=== PATIENT | female | born 1955 | race Caucasian/White ===

== ENCOUNTER 2017-04-08 10:53 | Emergency (ER) | payer OTHER ==
[~2017-04-08] VITALS: Ht 152.4 cm; Wt 54.4 kg
[~2017-04-08 10:53] MED LIST: BUSP10TA PO; CALC-274 PO; CARI350T PO; CITA40TA12 PO; FLUO40CA9 PO; HYDR200T5 PO; KRIL500C PO; LISI-334 PO; OXYC15TA60 PO; RIZA10TA PO; VITA1TAB19 PO
--- NOTE | 2017-04-08 11:17 | PHYS DOC ---
Past Medical History Past Medical History: Anxiety, Asthma, Hypertension, Migraines Past Surgical History: Other Additional Past Surgical Histo: (R) FOOT REPAIR Alcohol Use: None Drug Use: None Adult General Chief Complaint Chief Complaint: ABNORMAL LABS [facility] HPI Patient is a 61 year old female who presents with lab values. She was seen 2 days ago and had labs drawn at primary care office which showed a potassium of 6.2. She was sent in for this. She denies any fevers chills nausea vomiting. She has had some loose stools recently but this being controlled with Imodium. She denies any other complaints. Review of Systems Review of Systems Constitutional: Denies fever or chills Eyes: Denies change in visual acuity, redness, or eye pain HENT: Denies nasal congestion or sore throat Respiratory: Denies cough or shortness of breath Cardiovascular: No additional information not addressed in HPI GI: Denies abdominal pain, nausea, vomiting, bloody stools or diarrhea : Denies dysuria or hematuria Musculoskeletal: Denies back pain or joint pain Integument: Denies rash or skin lesions Neurologic: Denies headache, focal weakness or sensory changes Endocrine: Denies polyuria or polydipsia Allergies Allergies Allergies Coded Allergies Type Severity Reaction Last Updated Verified promethazine Allergy Severe Unknown 09/03/13 Yes Cephalexin Monohydrate Allergy Intermediate Unknown 09/03/13 Yes Penicillins Allergy Intermediate Unknown 09/03/13 Yes Physical Exam Physical Exam Constitutional: Well developed, well nourished, no acute distress, non-toxic appearance. HENT: Normocephalic, atraumatic, bilateral external ears normal, oropharynx moist, no oral exudates, nose normal. Eyes: PERRLA, EOMI, conjunctiva normal, no discharge. Neck: Normal range of motion, no tenderness, supple, no stridor. Cardiovascular:Heart rate regular rhythm, no murmur Lungs & Thorax: Bilateral breath sounds clear to auscultation Abdomen: Bowel sounds normal, soft, no tenderness, no masses, no pulsatile masses. Skin: Warm, dry, no erythema, no rash. Back: No tenderness, no CVA tenderness. Extremities: No tenderness, no cyanosis, no clubbing, ROM intact, no edema. Neurologic: Alert and oriented X 3, normal motor function, normal sensory function, no focal deficits noted. Psychologic: Affect normal, judgement normal, mood normal. Current Patient Data Vital Signs Vital Signs Date Time Temp Pulse Resp B/P (MAP) Pulse Ox O2 Delivery O2 Flow Rate FiO2 04/08/17 11:01 98.2 67 17 139/91 (107) 98 Room Air 98.2 Lab Values Laboratory Tests Test 04/08/17 11:20 04/08/17 11:45 04/08/17 13:00 White Blood Count 6.5 x10^3/uL (4.0-11.0) Red Blood Count 3.82 x10^6/uL (3.50-5.40) Hemoglobin 10.7 g/dL (12.0-15.5) L Hematocrit 31.8 % (36.0-47.0) L Mean Corpuscular Volume 83 fL (79-100) Mean Corpuscular Hemoglobin 28 pg (25-35) Mean Corpuscular Hemoglobin Concent 34 g/dL (31-37) Red Cell Distribution Width 13.6 % (11.5-14.5) Platelet Count 232 x10^3/uL (140-400) Neutrophils (%) (Auto) 58 % (31-73) Lymphocytes (%) (Auto) 31 % (24-48) Monocytes (%) (Auto) 9 % (0-9) Eosinophils (%) (Auto) 2 % (0-3) Basophils (%) (Auto) 1 % (0-3) Neutrophils # (Auto) 3.8 x10^3uL (1.8-7.7) Lymphocytes # (Auto) 2.0 x10^3/uL (1.0-4.8) Monocytes # (Auto) 0.6 x10^3/uL (0.0-1.1) Eosinophils # (Auto) 0.1 x10^3/uL (0.0-0.7) Basophils # (Auto) 0.1 x10^3/uL (0.0-0.2) Sodium Level 130 mmol/L (136-145) L 132 mmol/L (136-145) L Potassium Level 3.7 mmol/L (3.5-5.1) 4.5 mmol/L (3.5-5.1) # Chloride Level 96 mmol/L (98-107) L 96 mmol/L (98-107) L Carbon Dioxide Level 25 mmol/L (21-32) 26 mmol/L (21-32) Anion Gap 9 (6-14) 10 (6-14) Blood Urea Nitrogen 23 mg/dL (7-20) H 22 mg/dL (7-20) H Creatinine 1.0 mg/dL (0.6-1.0) 1.0 mg/dL (0.6-1.0) Estimated GFR (Cockcroft-Gault) 56.2 56.2 Glucose Level 97 mg/dL (70-99) 99 mg/dL (70-99) Calcium Level 8.2 mg/dL (8.5-10.1) L 8.8 mg/dL (8.5-10.1) Magnesium Level 1.8 mg/dL (1.8-2.4) Total Bilirubin 0.1 mg/dL (0.2-1.0) L Direct Bilirubin < 0.1 mg/dL (0.0-0.2) Aspartate Amino Transferase (AST) 28 U/L (15-37) Alanine Aminotransferase (ALT) 37 U/L (14-59) Alkaline Phosphatase 95 U/L (46-116) Creatine Kinase 127 U/L (26-192) Creatine Kinase MB (Mass) 1.7 ng/mL (0.0-3.6) Creatine Kinase MB Relative Index 1.3 % (0-4) Troponin I Quantitative < 0.017 ng/mL (0.000-0.055) TC-Zyj-G-Type Natriuretic Peptide 17 pg/mL (0-124) Total Protein 6.7 g/dL (6.4-8.2) Albumin 3.6 g/dL (3.4-5.0) Urine Collection Type Unknown Urine Color Yellow Urine Clarity Clear Urine pH 5.5 Urine Specific [place] 1.010 Urine Protein Negative mg/dL (NEG-TRACE) Urine Glucose (UA) Negative mg/dL (NEG) Urine Ketones (Stick) Negative mg/dL (NEG) Urine Blood Negative (NEG) Urine Nitrite Negative (NEG) Urine Bilirubin Negative (NEG) Urine Urobilinogen Dipstick 0.2 mg/dL (0.2 mg/dL) Urine Leukocyte Esterase Trace (NEG) Urine RBC 0 /HPF (0-2) Urine WBC 0 /HPF (0-4) Urine Squamous Epithelial Cells Few /LPF Urine Bacteria 0 /HPF (0-FEW) Laboratory Tests 04/08/17 11:20 Laboratory Tests 04/08/17 11:20 04/08/17 13:00 EKG EKG EKG shows sinus rhythm 3-[address] elevations or T-wave inversions, normal axis, Q RS 76 monocytes, QTC 451 ms, as interpreted by me. Radiology/Procedures Radiology/Procedures [] Impressions: Chronic renal insufficiency Course & Med Decision Making Course & Med Decision Making Pertinent Labs and Imaging studies reviewed. (See chart for details) Her potassium levels 3.7 with a sodium of 130. This was rechecked and potassium was 4.5. Spoke with Dr. Sosa regarding the normal values and she is okay with the patient being discharged home. Return precautions given. Patient is agreeable to the plan and being discharged in stable condition at this time. Dragon Disclaimer Dragon Disclaimer This electronic medical record was generated, in whole or in part, using a voice recognition dictation system. Departure Departure Impression: Primary Impression: Abnormal labor Disposition: 01 HOME, SELF-CARE Condition: STABLE Referrals: ALBAN RODRIGUES PA-C (PCP) Patient Instructions: Chronic Renal Insufficiency Additional Instructions: You were seen today for an abnormal potassium level on the outpatient lab. We repeated the labs twice and your potassium is normal. Your being discharged home. Please follow-up with your primary care physician and your systems architecture analyst. Return ER if he started feeling lightheaded dizzy or have other concerns. HEVER PRAJAPATI MD Apr 08, 2017 11:17
[2017-04-08 11:39] LABS: BASO # 0.1 x10^3/uL (0.0-0.2); BASO % 1 % (0-3); EOS % 2 % (0-3); HEMATOCRIT 31.8 % (36.0-47.0); HEMOGLOBIN 10.7 g/dL (12.0-15.5); LYMPH % 31 % (24-48); MEAN CORPUSCULAR HEMOGLOBIN 28 pg (25-35); MEAN CORPUSCULAR HGB CONC 34 g/dL (31-37); MEAN CORPUSCULAR VOLUME 83 fL (79-100); MONO % 9 % (0-9); NEUT % 58 % (31-73); PLATELET COUNT 232 x10^3/uL (140-400); RED BLOOD COUNT 3.82 x10^6/uL (3.50-5.40); RED CELL DISTRIBUTION WIDTH 13.6 % (11.5-14.5); WHITE BLOOD COUNT 6.5 x10^3/uL (4.0-11.0)
[2017-04-08 11:54] LABS: BILIRUBIN,URINE NEGATIVE (NEG); GLUCOSE,URINE NEGATIVE (NEG); NITRITE,URINE NEGATIVE (NEG); PH,URINE 5.5; PROTEIN,URINE NEGATIVE (NEG-TRACE); UROBILINOGEN,URINE 0.2 mg/dL (0.2 mg/dL)
[2017-04-08 11:54] LABS: ANION GAP 9 (6-14); BLOOD UREA NITROGEN 23 mg/dL (7-20); CALCIUM 8.2 mg/dL (8.5-10.1); CARBON DIOXIDE 25 mmol/L (21-32); CHLORIDE 96 mmol/L (98-107); GFR 56.2; GLUCOSE 97 mg/dL (70-99); POTASSIUM 3.7 mmol/L (3.5-5.1); SODIUM 130 mmol/L (136-145)
[2017-04-08 11:57] LABS: ALBUMIN 3.6 g/dL (3.4-5.0); ALK PHOS 95 U/L (46-116); ALT (SGPT) 37 U/L (14-59); AST (SGOT) 28 U/L (15-37); DIRECT BILIRUBIN < 0.1 mg/dL (0.0-0.2); MAGNESIUM 1.8 mg/dL (1.8-2.4); TOTAL BILIRUBIN 0.1 mg/dL (0.2-1.0); TOTAL PROTEIN 6.7 g/dL (6.4-8.2)
[2017-04-08 11:58] LABS: CKMB MASS 1.7 ng/mL (0.0-3.6)
[2017-04-08 12:05] LABS: BACTERIA,URINE 0 /HPF (0-FEW); RBC,URINE 0 /HPF (0-2); SQUAMOUS EPITHELIAL CELL,UR FEW /LPF; WBC,URINE 0 /HPF (0-4)
[2017-04-08 12:30] VITALS: BP 133/81
[2017-04-08 13:18] LABS: CALCIUM 8.8 mg/dL (8.5-10.1); GFR 56.2; POTASSIUM 4.5 mmol/L (3.5-5.1)
--- NOTE | 2017-04-08 13:20 | EKG ---
[facility] [address] [place] [address] Test Date: 2017-04-08 Test Time: 11:31:51 Pat Name: KETTY CUEVAS Department: Room: Gender: F Mechanic/Welder: : 1955 Requested By: HEVER PRAJAPATI Order Number: [id number] Reading MD: Cecilia Gold Measurements Intervals [place] Rate: 68 P: 42 MS: 154 QRS: 15 QRSD: 76 T: 36 QT: 424 QTc: 451 Interpretive Statements SINUS RHYTHM NORMAL EKG Electronically Signed On 04-10-2017 19:04:57 CDT by Cecilia Gold
== END 2017-04-08 13:45 | disposition home or self-care (01) ==
LOC: ER 10:53
DX: I12.9 Hypertensive chronic kidney disease with stage 1 through stage 4 chronic kidney disease, or unspecified chronic kidney disease (principal); N18.9 Chronic kidney disease, unspecified; R79.9 Abnormal finding of blood chemistry, unspecified; J45.909 Unspecified asthma, uncomplicated; G43.909 Migraine, unspecified, not intractable, without status migrainosus; Z88.0 Allergy status to penicillin; Z88.1 Allergy status to other antibiotic agents; Z88.8 Allergy status to other drugs, medicaments and biological substances
CPT/HCPCS: 36415; 80048; 80076; 81001; 82553; 83735; 83880; 84484; 85025; 87086; 93005; 99285-25

== ENCOUNTER → 2017-04-25 | Outpatient (CLI) | payer OTHER ==
[2017-04-08 12:30] VITALS: BP 133/81
--- NOTE | 2017-04-25 11:34 | KCIC ---
DATE: 04/25/2017 EXAM: MAMMO MORAIMA SCREENING BILATERAL HISTORY: Screening COMPARISON: 02/27/2016 This study was interpreted with the benefit of Computerized Aided Detection (CAD). FINDINGS: Breast Density: SCATTERED The breast parenchyma shows scattered fibroglandular densities. Breast parenchyma level B. There has been little change in the appearance of the breasts compared to the previous exam IMPRESSION: Benign findings BI-RADS CATEGORY: 2 BENIGN FINDING(S) RECOMMENDED FOLLOW-UP: 12M 12 MONTH FOLLOW-UP PQRS compliance statement: Patient information was entered into a reminder system with a target due date 04/25/2018 for the next mammogram. Mammography is a sensitive method for finding small breast cancers, but it does not detect them all and is not a substitute for careful clinical examination. A negative mammogram does not negate a clinically suspicious finding and should not result in delay in biopsying a clinically suspicious abnormality. "Our facility is accredited by the [employer] Mammography Program."
== END | disposition home or self-care (01) ==
LOC: KCIC MAMMO 08:09
PROVIDERS: ATTEND Internal Medicine
DX: Z12.31 Encounter for screening mammogram for malignant neoplasm of breast (principal)
CPT/HCPCS: 77063; G0202; 77067

== ENCOUNTER → 2018-04-06 | Outpatient (CLI) | payer OTHER ==
--- NOTE | 2018-04-06 10:34 | KCIC ---
MR of the left shoulder Indication: Left shoulder weakness, fell 2 years ago, decreased range of motion. Technique: Standard multiplanar sequences are obtained. Findings: Artifact: No significant image degradation. Acromioclavicular joint: Mildly degenerative. Minimal fluid about the joint. Rotator cuff: * Supraspinatus-infraspinatus tendon: Thinning of the supraspinatus tendon, as little as 1 mm thick at the footplate attachment. Presumably due to tearing of the undersurface and/or the bursal surface. Measures at least 15 mm AP diameter No complete through and through rupture or retraction. * Subscapularis tendon: Tendinosis with partial tearing * Muscle bulk: Moderate muscle atrophy * Subacromial subdeltoid bursa: Trace effusion. Fluid: Small glenohumeral effusion. Mild heterogeneity within the axillary recess is likely synovitis. Glenohumeral cartilage: Severe cartilage loss with subchondral bone exposure and cystic change. There is volume loss and flattening of the glenoid. Labrum: Diffuse distortion and heterogeneity of the labrum. Tear of the posterosuperior labrum. Anteroinferior labrum also demonstrate evidence of a chronic degenerative tear. Biceps tendon: Tendinosis with partial tearing. Medial subluxation, perched and flattened over the lesser tuberosity. Bones: No lesion or acute fracture. Soft tissue: No acute findings. Impression: 1. Severe thinning of the supraspinatus tendon attachment compatible with partial tearing. Partial subscapularis tendon tear. 2. Biceps tendinosis with partial tearing medial subluxation. 3. Circumferential labral degeneration, with tearing of at least the posterosuperior and anteroinferior labrum. The Electronically signed by: Balwinder Russo MD (04/06/2018 10:30 AM) [id number]
== END | disposition home or self-care (01) ==
LOC: KCIC MRI 07:41
PROVIDERS: ATTEND Physician Assistant Surgical
DX: S43.082A Other subluxation of left shoulder joint, initial encounter (principal); S46.812A Strain of other muscles, fascia and tendons at shoulder and upper arm level, left arm, initial encounter; M62.512 Muscle wasting and atrophy, not elsewhere classified, left shoulder; X58.XXXA Exposure to other specified factors, initial encounter; Y93.89 Activity, other specified; Y92.89 Other specified places as the place of occurrence of the external cause; Y99.8 Other external cause status
CPT/HCPCS: 73221

== ENCOUNTER → 2018-04-27 | Outpatient (CLI) | payer OTHER ==
[~2018-04-27] MED LIST changes: +ACET500T33 PO; +CRESTOR20 MG PO; +DIPH50CA PO; +ESCITALOPRAM OX20 MG PO; +LORA1TAB PO; +LOSA100T7 PO; +OMEP20TA8 PO; +ONDA4TAB12 PO; +UBID400C3 PO
--- NOTE | 2018-04-27 14:23 | KCIC ---
Bilateral digital screening mammograms: Reason for examination: Routine screening. Comparison is made to previous studies dated 04/25/2017 and 02/27/2016. Interpretation was made with the benefit of CAD. The skin and nipples show no abnormalities. No abnormal axillary lymph nodes are seen. The breast parenchyma shows scattered fibroglandular density. (Breast density: Category B.) There continues to be some asymmetric parenchyma in the right breast in the upper outer quadrant anteriorly which is unchanged. There are no new dominant masses, suspicious calcifications or architectural distortions. Some benign calcifications are present. Impression: No evidence of malignancy. Recommend routine screening. BI-RADS category 2: Benign "Our facility is accredited by the [employer] Mammography Program." This patient's information has been entered into a reminder system for the patient to be notified with the results of her examination and a target date for the next mammogram. Electronically signed by: Tanisha Cortes MD (04/27/2018 2:20 PM) [id number]
== END | disposition home or self-care (01) ==
LOC: KCIC MAMMO 12:29
PROVIDERS: ATTEND Physician Assistant Surgical
DX: Z12.31 Encounter for screening mammogram for malignant neoplasm of breast (principal)
CPT/HCPCS: 77067

== ENCOUNTER → 2018-05-02 | Outpatient (CLI) | payer OTHER ==
[2018-05-02 15:31] LABS: BASO % 1 % (0-3); EOS # 0.1 x10^3/uL (0.0-0.7); EOS % 1 % (0-3); HEMATOCRIT 34.4 % (36.0-47.0); HEMOGLOBIN 11.3 g/dL (12.0-15.5); LYMPH # 2.3 x10^3/uL (1.0-4.8); LYMPH % 40 % (24-48); MEAN CORPUSCULAR HEMOGLOBIN 27 pg (25-35); MEAN CORPUSCULAR HGB CONC 33 g/dL (31-37); MEAN CORPUSCULAR VOLUME 82 fL (79-100); MONO # 0.4 x10^3/uL (0.0-1.1); MONO % 8 % (0-9); NEUT # 2.9 x10^3uL (1.8-7.7); NEUT % 50 % (31-73); PLATELET COUNT 237 x10^3/uL (140-400); RED BLOOD COUNT 4.19 x10^6/uL (3.50-5.40); RED CELL DISTRIBUTION WIDTH 17.5 % (11.5-14.5); WHITE BLOOD COUNT 5.9 x10^3/uL (4.0-11.0)
--- NOTE | 2018-05-02 15:33 | EKG ---
[facility] [address] [place] [address] Test Date: 2018-05-02 Test Time: 15:41:26 Pat Name: KETTY CUEVAS Department: Room: Gender: F Under Seal Operator: KOMAL : 1955 Requested By: RICHA DEVINE Order Number: [id number] Reading MD: Sandoval Ko MD Measurements Intervals [place] Rate: 74 P: 42 SD: 148 QRS: 19 QRSD: 74 T: 51 QT: 372 QTc: 413 Interpretive Statements SINUS RHYTHM Electronically Signed On 05-03-2018 17:50:48 JEWELRY SALESPERSON by Sandoval Ko MD
[2018-05-02 15:36] LABS: ALBUMIN 4.1 g/dL (3.4-5.0); CALCIUM 8.9 mg/dL (8.5-10.1); CREATININE 1.3 mg/dL (0.6-1.0); GFR 41.4; POTASSIUM 4.5 mmol/L (3.5-5.1)
[2018-05-02 15:44] LABS: PROTHROMBIN TIME PATIENT 12.4 SEC (11.7-14.0)
[2018-05-02 15:49] LABS: BILIRUBIN,URINE NEGATIVE (NEG); CLARITY,URINE CLEAR; COLOR,URINE YELLOW; NITRITE,URINE NEGATIVE (NEG); PROTEIN,URINE NEGATIVE (NEG-TRACE); UROBILINOGEN,URINE 0.2 mg/dL (0.2 mg/dL)
[2018-05-02 16:02] LABS: BACTERIA,URINE 0 /HPF (0-FEW); SQUAMOUS EPITHELIAL CELL,UR FEW /LPF
--- NOTE | 2018-05-02 16:07 | RAD ---
AP and Lateral Views of the Chest 05/02/2018 3:44 PM Indication: PREOP CXR FOR LEFT SHOLDER REPLACEMENT ON THE . OFF AND ON COUGH FOR PAST WEEK. HX OF HYPERTENTION, HX HYPERLIPIDEMA, HX ASTHMA, Comparison: None Findings: There is no focal consolidation or infiltrate identified. The cardiomediastinal silhouette is within normal limits. There is no evidence of pneumothorax or pleural effusion. Moderate hiatal hernia noted. No acute osseous abnormalities are identified. Impression: 1.No evidence of acute cardiopulmonary process. 2. Moderate hiatal hernia Electronically signed by: Phani Vargas MD (05/02/2018 4:04 PM) [id number]
== END | disposition home or self-care (01) ==
LOC: SURGPAT 14:42
PROVIDERS: ATTEND Orthopaedic Surgery Sports Medicine
DX: Z01.818 Encounter for other preprocedural examination (principal); M19.012 Primary osteoarthritis, left shoulder; K44.9 Diaphragmatic hernia without obstruction or gangrene
CPT/HCPCS: 36415; 71046; 80048; 81001; 82040; 83036; 85025; 85610; 85651; 85730; 87086; 87641; 93005

== ENCOUNTER → 2018-05-15 | Outpatient (CLI) | payer OTHER ==
[~2018-05-15] VITALS: Ht 177.8 cm; Wt 55.6 kg
[~2018-05-15] MED LIST changes: +BUPIVACAINE MPF 0.5% 30 ML VIAL. ONE; +GLYCOPYRROLATE 1 MG/5 ML VIAL. ONE; +HYDROcodone/APAP 7.5/325MG 1 TAB TABLET PO ONE; +HYDROmorphone 2 MG/ML VIAL IV PRN; +IV RINGERS,LACTATED 1000ML 1,000 ML IV SCH; +LIDOCAINE 1% PF 2 ML VIAL. ID PRN; +LIDOCAINE 2% PF 2ML VIAL. ONE; +LOSA100T14 PO; -LOSA100T7 PO; +MELOXICAM 7.5 MG TABLET PO ONE; +MIDAZOLAM HCL/PF 2 MG/2 ML VIAL. ONE; +MORPHINE SULFATE 2 MG/ML VIAL. IV PRN; +MORPHINE SULFATE 5 MG, KETOROLAC 30MG VIAL 30 MG, ROPIVacaine 0.5% PF 60 ML, EPINEPHrin... INT ART ONE; +NEOSTIGMINE METHYLSULFATE 5 MG/5 ML SYRINGE. ONE; -OXYC15TA60 PO; +OXYC15TA61 PO; +ROCURONIUM 50 MG/5 ML VIAL. ONE; +VANCOMYCIN 1GM IVPB FOR OMNI 250 ML IV ONE; +ePHEDrine PF IN SALINE 50 MG/5 ML DISP.SYRIN IV ONE; +fentaNYL PF VIAL 100 MCG/2 ML VIAL IV PRN; +fentaNYL PF VIAL 100 MCG/2 ML VIAL ONE
[2018-05-15 08:52] VITALS: BP 132/92
[2018-05-15 09:40] LABS: PROTHROMBIN TIME PATIENT 13.7 SEC (11.7-14.0)
== END | disposition home or self-care (01) ==
LOC: OPSVCIP 08:24 → OPSVCOP 08:24 → UNDOADMIN 08:24 → EDSTATUS 10:00
PROVIDERS: ATTEND Orthopaedic Surgery Sports Medicine
DX: M19.012 Primary osteoarthritis, left shoulder (principal); I12.9 Hypertensive chronic kidney disease with stage 1 through stage 4 chronic kidney disease, or unspecified chronic kidney disease; N18.2 Chronic kidney disease, stage 2 (mild); J45.909 Unspecified asthma, uncomplicated; G43.909 Migraine, unspecified, not intractable, without status migrainosus; M51.37 Other intervertebral disc degeneration, lumbosacral region; M47.892 Other spondylosis, cervical region; M47.896 Other spondylosis, lumbar region; M43.16 Spondylolisthesis, lumbar region; M48.02 Spinal stenosis, cervical region; F41.9 Anxiety disorder, unspecified; Z88.1 Allergy status to other antibiotic agents; Z88.0 Allergy status to penicillin; Z88.8 Allergy status to other drugs, medicaments and biological substances; Z79.899 Other long term (current) drug therapy
CPT/HCPCS: 36415; 85610; 85730; 86850; 86900; 86901; 96360; J0171; J1885; J2001; J2250; J2270; J2710; J2795; J3010; J3490; J7120

== ENCOUNTER → 2020-04-07 | Outpatient (CLI) | payer OTHER ==
[2019-01-05 08:06] VITALS: BP 142/74
[~2020-04-07] MED LIST changes: -BUPIVACAINE MPF 0.5% 30 ML VIAL. ONE; -GLYCOPYRROLATE 1 MG/5 ML VIAL. ONE; -HYDROcodone/APAP 7.5/325MG 1 TAB TABLET PO ONE; -HYDROmorphone 2 MG/ML VIAL IV PRN; -IV RINGERS,LACTATED 1000ML 1,000 ML IV SCH; -LIDOCAINE 1% PF 2 ML VIAL. ID PRN; -LIDOCAINE 2% PF 2ML VIAL. ONE; -MELOXICAM 7.5 MG TABLET PO ONE; -MIDAZOLAM HCL/PF 2 MG/2 ML VIAL. ONE; -MORPHINE SULFATE 2 MG/ML VIAL. IV PRN; -MORPHINE SULFATE 5 MG, KETOROLAC 30MG VIAL 30 MG, ROPIVacaine 0.5% PF 60 ML, EPINEPHrin... INT ART ONE; -NEOSTIGMINE METHYLSULFATE 5 MG/5 ML SYRINGE. ONE; -ROCURONIUM 50 MG/5 ML VIAL. ONE; -VANCOMYCIN 1GM IVPB FOR OMNI 250 ML IV ONE; -ePHEDrine PF IN SALINE 50 MG/5 ML DISP.SYRIN IV ONE; -fentaNYL PF VIAL 100 MCG/2 ML VIAL IV PRN; -fentaNYL PF VIAL 100 MCG/2 ML VIAL ONE
--- NOTE | 2020-04-07 10:00 | KCIC ---
Bilateral digital screening mammograms: Reason for examination: Routine screening. Comparison is made to previous studies dated 04/27/2018 and 04/25/2017. Interpretation was made with the benefit of CAD. The skin and nipples show no abnormalities. No abnormal axillary lymph nodes are seen. The breast parenchyma shows scattered fibroglandular density. (Breast density: Category B.) There are no dominant masses, suspicious calcifications or architectural distortions. Some benign calcifications are present. Impression: No evidence of malignancy. Recommend routine screening. BI-RADS category 2: Benign "Our facility is accredited by the [employer] Mammography Program." This patient's information has been entered into a reminder system for the patient to be notified with the results of her examination and a target date for the next mammogram. Electronically signed by: Tanisha Cortes MD (04/07/2020 9:57 AM) [id number]
== END ==
LOC: KCIC MAMMO 08:25
PROVIDERS: ATTEND Family Medicine
DX: Z12.31 Encounter for screening mammogram for malignant neoplasm of breast (principal); N64.89 Other specified disorders of breast
CPT/HCPCS: 77067

== ENCOUNTER → 2021-01-13 | Outpatient (CLI) | payer OTHER ==
[2019-01-05 08:06] VITALS: BP 142/74
[~2021-01-13] MED LIST changes: -LISI-334 PO; +LISI20TA18 PO
--- NOTE | 2021-01-13 12:05 | KCIC ---
MRI of the lumbar spine without contrast 01/13/2021 CLINICAL HISTORY: Chronic low back pain with bilateral leg pain worsening over the last 12 months. TECHNIQUE: Unenhanced T1-weighted and T2-weighted sagittal and axial and inversion recovery sagittal images of the lumbar spine were obtained. FINDINGS: Comparison is made to radiographs of the lumbar spine performed concurrently with this exam ination. Very mild S-shaped curvature of the thoracolumbar spine is seen. Moderate anterolisthesis of L4 in re lation to L5 is seen. Degenerative signal changes and loss of height are seen involving the L4-5 and L5-S1 discs. Degenerative signal changes are seen within the marrow surrounding these discs. The conu s medullaris is normal morphology, position, and signal characteristics. At the L1-2, L2-3 and L3-4 disc spaces there are minimal to mild generalized disc bulges. Degenerativ e changes are seen involving the facet joints bilaterally. There are small facet joint effusions bila terally. There is mild to moderate ligamentum flavum hypertrophy bilaterally. These findings do not r esult in significant central spinal canal or neural foraminal stenosis. At the L4-5 disc space there is a moderate generalized disc bulge. Degenerative changes are seen invo lving the facet joints bilaterally. There is moderate ligamentum flavum hypertrophy bilaterally. Thes e findings when combined with the anterolisthesis at this level result in severe central spinal canal stenosis. Mild to moderate bilateral neural foraminal stenosis is seen. At the L5-S1 disc space there is a mild generalized disc bulge. Degenerative changes are seen involvi ng the facet joints bilaterally. There is mild ligamentum flavum hypertrophy bilaterally. The disc bu lge is eccentric to the left. These findings when combined do not result in significant central spina l canal stenosis. Mild left neural foraminal stenosis is seen. The right neural foramen is patent. IMPRESSION: The changes of degenerative disc disease are seen throughout the lumbar spine. These find ings result in severe central spinal canal stenosis at L4-5. Mild to moderate bilateral neural forami nal stenosis is seen at L4-5. Mild left neural foraminal stenosis is seen at L5-S1. Electronically signed by: Rashawn Singer MD (01/13/2021 12:03 PM) [id number]
--- NOTE | 2021-01-13 16:17 | KCIC ---
XR LUMBAR SPINE 2-3V History: Lumbar radiculopathy. Chronic low back pain with bilateral lower extremity pain. Comparison: MRI lumbar spine 01/13/2021 Technique: 3 views of the lumbar spine. Findings: There are 5 non-rib bearing lumbar vertebral segments. There is no evidence of fracture. Grade 2 anterolisthesis of L4 on L5. No destructive osseous lesions are seen. Multilevel degenerative facet disease. Severe disc space narrowing L4-L5. Moderate disc space narrowing at L5-S1 Sacroiliac joints are unremarkable. Soft tissues are unremarkable. IMPRESSION: 1. Lumbar spondylosis greatest at L4-L5 where there is severe disc height loss and moderate anteroli sthesis of L4 on L5. Electronically signed by: Chandler Unger MD (01/13/2021 4:15 PM) [facility]
== END ==
LOC: KCIC MRI 08:28
PROVIDERS: ATTEND Family Medicine
DX: M47.27 Other spondylosis with radiculopathy, lumbosacral region (principal); M51.17 Intervertebral disc disorders with radiculopathy, lumbosacral region; M48.07 Spinal stenosis, lumbosacral region; M43.16 Spondylolisthesis, lumbar region; M43.8X5 Other specified deforming dorsopathies, thoracolumbar region; M25.48 Effusion, other site
CPT/HCPCS: 72100; 72148

== ENCOUNTER → 2021-02-04 | Outpatient (CLI) | payer OTHER ==
[2019-01-05 08:06] VITALS: BP 142/74
[~2021-02-04] MED LIST changes: +AMLO2.5T5 PO; +BUSP5TAB PO; +IOHEXOL 180 MG/ML 10 ML VIAL. ONE; +OLME5TAB4 PO; +TIZA4TAB2 PO; +methylPREDNISolone ACETATE 40 MG/ML VIAL. ONE; +methylPREDNISolone ACETATE 80 MG/ML VIAL. ONE
--- NOTE | 2021-02-04 13:39 | PDOC1 ---
INITIAL PAIN CONSULT DATE OF SERVICE: DOS: DATE: 02/04/21 TIME: 13:33 CHIEF COMPLAINT: Chief Complaint: Low back and bilateral lower extremity pain HISTORY OF PRESENT ILLNESS: 65-year-old female presents history of pain low back bilateral lower extremities for many years worse over the past 1 year or so increasing without the result of any specific injury or accident that she is aware of. Patient reports pain is increasing worse with walking standing changing position specially getting up from a seated position and has been disturbing sleep occasionally but most nights does not patient reports the pain in the low back bilaterally across low back in the posterior gluteus posterior lateral thigh lateral anterior thighs anteromedial thighs medial lower legs as well right essentially equal to left. Patient reports is aching and burning described as radiating in the lower extremities shooting and sharp constant in the low back itself. Patient reports can affect her bowel bladder control and has some increased diarrhea when the pain is at its worst. Patient reports it can affect her ability to walk and she is not use any assistive devices. Patient reports has had chiropractic treatment also taking tizanidine for leg cramps has taken [id number] Motrin which is helpful but only about 30%. Patient had MRI scan of the lumbar spine dated January 13, 2021 showing moderate generalized disc bulge at L4-5 with ligamentum flavum hypertrophy resulting in severe central spinal canal stenosis with mild to moderate bilateral neuroforaminal stenosis at L5-S1 shows no significant central stenosis but mild left neuroforaminal stenosis seen. Patient reports her disability rating 0-10 10 being the worst is a 9 with family home responsibilities and recreation 4 with social activity 5 with occupation sexual behavior 1 with self-care and 0 with life support activities. PAST MEDICAL HISTORY: PMH: Hypertension, hypercholesterolemia, diarrhea, kidney disease, arthritis, anxiety depression, PTSD PREVIOUS SURGERIES: Past Surgical Hx: Right foot surgery x2 CURRENT MEDICATIONS: Current Meds: Active Scripts Medications Dose Route/Sig Max Daily Dose Days Date Category Tizanidine Hcl 4 Mg Tablet 4 Mg PO TID PRN 02/04/21 Reported Buspirone Hcl 5 Mg Tablet Unknown Dose PO BID 02/04/21 Reported Benicar (Olmesartan Medoxomil) 5 Mg Tablet Unknown Dose PO DAILY 02/04/21 Reported Amlodipine Besylate 2.5 Mg Tablet Unknown Dose PO DAILY 02/04/21 Reported Escitalopram Oxalate 20 Mg Tablet 1 Tab PO DAILY 05/02/18 Reported Lorazepam 1 Mg Tablet 1 Tab PO TID 05/02/18 Reported ALLERGIES; Allergies: Coded Allergies: promethazine (Verified Allergy, Severe, RENAL FAILURE, 01/05/19) kidney failure Cephalexin Monohydrate (Verified Allergy, Intermediate, 01/05/19) Penicillins (Verified Allergy, Intermediate, 01/05/19) FAMILY HISTORY: Family Hx: Hypertension SOCIAL HISTORY: Social Hx: Patient drinks alcohol 1-2 times per month does not smoke says any illegal illicit or recreational drugs is lives locally with her spouse and boyfriend, works at the formerly [employer], [employer] in the [employer] department. REVIEW OF SYSTEMS: ROS: Positive for those items mentioned in history of present illness, all systems are reviewed, otherwise negative ,and are complete full and well-documented on patient's chart. PHYSICAL EXAM: VS: Blood pressure is 160/94 pulse 98 respirations 1800 9190 Fahrenheit height is 5 foot weight 154 pounds PE: PHYSICAL EXAMINATION: GENERAL: The patient is awake, alert, oriented, appropriate, very pleasant in demeanor HEENT: Shows normocephalic, atraumatic. Extraocular movements are intact and symmetrical. Oral cavity: Mucous membranes moist and pink. Dentition is intact. NECK: Shows anterior throat supple without palpable lymphadenopathy noted. Swallow reflex symmetrical. CHEST: Shows normal on inspection. Breath sounds are clear bilaterally, distant but no rales rhonchi wheezes auscultated. HEART: Shows S1, S2 clear. No murmurs auscultated. ABDOMEN: Soft, nontender, nondistended, obese. No palpable organomegaly is noted. No rebound or guarding demonstrated. BACK: Shows spine grossly in the midline. Normal-appearing cervical lordotic curvature. There is slightly increased thoracic kyphosis, some minor flattening of the lumbar lordotic curvature. Lumbar paraspinous muscles show symmetrical on inspection, on palpation shows some moderate tenderness diffusely throughout the upper, middle and lower distribution of the paraspinous muscles bilaterally and also into the lower thoracic paraspinous musculature, firm and tender, but without specific trigger points, without radiation of pain. The patient has good rotational motion of the lumbar spine, both laterally as well as extension and flexion without significant difficulty. No tenderness over the spinous processes, sacrum or sacroiliac regions. EXTREMITIES: Lower extremities show deep tendon reflexes 2+ in the patellar and tendo calcaneus tendons. Motor exam is 5 on a scale of 5 with right dorsiflexion, extension, quadriceps and hamstring flexion and 5/5 on the left. Peripheral pulses are 1+ posterior tibial. No peripheral edema is noted bilaterally. Lower extremities are warm and dry to touch, equal in color and appearance. Straight leg raise noted to be positive bilaterally approximate 45 degrees decreased with knee flexion. Gaenslen's and Gus's maneuvers are negative bilaterally. The patient is able to stand, stand on toes that significant difficulty loss of balance walks with a normal-appearing gait not appear to favor the right or left lower extremity significantly is not use any assistive devices to ambulate. SKIN: Shows warm and dry, good turgor. No edema. No sores, rashes or bruising throughout. IMPRESSION: Impression: 65-year-old female with approximate 1 year history increasing pain low back bilateral lower extremities and radicular fashion MRI scan lumbar spine as noted Hypertension Hypothyroidism Kidney disease Arthritis Plan: Options discussed with patient including conservative medical management physical therapies and interventional techniques. Patient would like to pursue interventional techniques. We discussed a lumbar epidural steroid injections description as well as anatomical models described procedure. Risks were discussed including but not limited to: Bleeding, infection, possibility of epidural hematoma and subsequent neurological compromise, dural puncture, headaches, spinal cord and/or nerve damage, side effects of steroid medication, and poor results regarding pain control. Patient understands and wished to proceed. Patient will return to the clinic in approximate 2 weeks for follow-up, was counseled as to return appointment activity level and side effects to be aware of. Procedure is lumbar epidural steroid injection under local anesthetic using sterile prep and drape at the L4-5 level using C-arm fluoroscopic guidance in both AP and lateral views medications injected is 120 mg Depo-Medrol +10mL preservative-free normal saline and 2 mL contrast- condition at discharge is stable patient tolerated procedure well had no complications. ESTRELLA CLIFFORD MD Feb 04, 2021 13:39
--- NOTE | 2021-02-04 13:40 | PDOC4 ---
Procedure Note: ICD 10 Code: ICD 10 Code: M54.16 M 48.07 Procedure Note: Patient was consented for lumbar epidural steroid injection with fluoroscopic guidance. Risks were discussed including but not limited to: Bleeding, infection, possibility of epidural hematoma and subsequent neurological compromise, dural puncture, headaches, spinal cord and/or nerve damage, side effects of steroid medication, and poor results regarding pain control. Patient understands and wished to proceed. Procedure is lumbar epidural steroid injection under local anesthetic using sterile prep and drape at the L4-5 level using C-arm fluoroscopic guidance in both AP and lateral views medications injected is 120 mg Depo-Medrol +10mL preservative-free normal saline and 2 mL contrast- condition at discharge is stable patient tolerated procedure well had no complications. ESTRELLA CLIFFORD MD Feb 04, 2021 13:40
== END ==
LOC: PNCL 10:26
PROVIDERS: ATTEND Anesthesiology
DX: M51.16 Intervertebral disc disorders with radiculopathy, lumbar region (principal); I10 Essential (primary) hypertension; E78.00 Pure hypercholesterolemia, unspecified; F41.9 Anxiety disorder, unspecified; F32.9 Major depressive disorder, single episode, unspecified; N19 Unspecified kidney failure; M19.90 Unspecified osteoarthritis, unspecified site; Z79.899 Other long term (current) drug therapy; Z88.0 Allergy status to penicillin; Z88.8 Allergy status to other drugs, medicaments and biological substances; Z98.890 Other specified postprocedural states
CPT/HCPCS: 62323; J1030; J1040; Q9965

== ENCOUNTER → 2021-05-12 | Outpatient (CLI) | payer OTHER ==
[2019-01-05 08:06] VITALS: BP 142/74
[~2021-05-12] MED LIST changes: -DIPH50CA PO; +DIPH50CA16 PO; +TIZA-75 PO; -TIZA4TAB2 PO
--- NOTE | 2021-05-12 09:23 | PDOC ---
Progress Note - Pain Clinic Date of Service: DOS: DATE: 05/12/21 TIME: 09:20 Diagnosis: Dx: Lumbar radiculopathy with lumbar degenerative disease and lumbar spinal stenosis History or Present Illness: HPI: 65-year-old female returns for a follow-up last seen January 2021 patient did very well after lumbar epidural steroid injection reports about 90% improvement for about 2 and half months pain returning now over the past week or so in the low back and bilateral lower extremities posterior gluteus posterior lateral thigh lateral anterior thigh anteromedial thighs patient reports is becoming more constant in the back and aching with shooting and radiating pain in the lower extremities right seems equal to left. Patient has injury to her left foot and is wearing a immobilizing boot on the left foot which is caused the pain to increase to some extent as well in the low back. Patient reports better with sitting or lying down worse with walking standing changing positions does not generally awaken her from sleep at night patient reports initially she would do much better with distance walking doing household activities work to but is try with greater ease and comfort as well. Patient reports she is recently helped move to a new home and has been on a vacation where she was traveling quite a bit and the pain was fairly tolerable but is returning now in the low back and bilateral lower extremity to a significant extent patient rates as 8 on scale 10 is worst over the past week 8 on average 5 its least is a 8 today. Patient reports no bowel or bladder incontinence. Physical Exam: VS: Blood pressure is 137/86 pulse 71 respirations 1890.0 F height is 5 foot weight is 156 PE: PHYSICAL EXAMINATION: GENERAL: The patient is awake, alert, oriented, appropriate, very pleasant in demeanor HEENT: Shows normocephalic, atraumatic. Extraocular movements are intact and symmetrical. Patient wearing eyeglasses. Oral cavity: Mucous membranes moist and pink. Dentition is intact. NECK: Shows anterior throat supple without palpable lymphadenopathy noted. Swallow reflex symmetrical. CHEST: Shows normal on inspection. Breath sounds are clear bilaterally, distant but no rales rub. HEART: Shows S1, S2 clear. No murmurs auscultated. ABDOMEN: Soft, nontender, nondistended, obese. No palpable organomegaly is noted. BACK: Shows spine grossly in the midline. Normal-appearing cervical lordotic curvature. There is slightly increased thoracic kyphosis, some minor flattening of the lumbar lordotic curvature. Lumbar paraspinous muscles show symmetrical on inspection, on palpation shows some moderate tenderness diffusely throughout the upper, middle and lower distribution of the paraspinous muscles without specific trigger points, without radiation of pain. The patient has good rotational motion of the lumbar spine, both laterally as well as extension and flexion without significant difficulty. EXTREMITIES: Lower extremities show deep tendon reflexes 2 in the patellar and tendo calcaneus tendons. Motor exam is 5 on a scale of 5 with right dorsiflexion, extension, quadriceps and hamstring flexion and 5 /5 on the left. Peripheral pulses are 1+ posterior tibial. No peripheral edema is noted bilaterally. Lower extremities are warm and dry. SKIN: Shows warm and dry, good turgor. No edema. No sores, rashes or bruising throughout. Procedure: Procedure: Options were discussed with patient. Patient's old chart was reviewed as her current medication regimen updated current review of systems updated today as well. We will proceed with a lumbar epidural steroid injection today with fluoroscopic guidance. Risks were discussed including but not limited to: Bleeding, infection, possibility of epidural hematoma and subsequent south rological compromise, dural puncture, headaches, spinal cord and/or nerve damage, side effects of steroid medication, and poor results regarding pain control. Patient understands and wished to proceed. Patient return to clinic in approximate 2 weeks for follow-up, was counseled return appointment, typical, and side effect to be aware of. Medication Injected: Med Injected: Procedure is lumbar epidural steroid injection under local anesthetic using sterile prep and drape at the L4-5 level using C-arm fluoroscopic guidance in both AP and lateral views medications injected is 120 mg Depo-Medrol +10mL p reservative-free normal saline and 2 mL contrast- condition at discharge is stable patient tolerated procedure well had no complications. Condition at Discharge: Condition at Discharge: Condition at discharge stable, patient tolerated procedure well and had no complications. ESTRELLA CLIFFORD MD May 12, 2021 09:23
--- NOTE | 2021-05-12 09:24 | PDOC4 ---
Procedure Note: ICD 10 Code: ICD 10 Code: M54.16 M51.36 M4 8.06 Procedure Note: Patient was consented for lumbar epidural steroid injection with fluoroscopic guidance, risks were discussed including but not limited to: Bleeding, infection, possibility of epidural hematoma and subsequent neurological compromise, dural puncture, headaches, spinal cord and/or nerve damage, side effects of steroid medication, and poor results regarding pain control. Patient understands and wished to proceed. Procedure is lumbar epidural steroid injection under local anesthetic using ster ile prep and drape at the L4-5 level using C-arm fluoroscopic guidance in both AP and lateral views medications injected is 120 mg Depo-Medrol +10mL preservative-free normal saline and 2 mL contrast- condition at discharge is stable patient tolerated procedure well had no complications. ESTRELLA CLIFFORD MD May 12, 2021 09:24
== END | disposition home or self-care (01) ==
LOC: PNCL 08:47
PROVIDERS: ATTEND Anesthesiology
DX: M51.16 Intervertebral disc disorders with radiculopathy, lumbar region (principal); M48.061 Spinal stenosis, lumbar region without neurogenic claudication; I12.9 Hypertensive chronic kidney disease with stage 1 through stage 4 chronic kidney disease, or unspecified chronic kidney disease; N18.2 Chronic kidney disease, stage 2 (mild); J45.909 Unspecified asthma, uncomplicated; M19.90 Unspecified osteoarthritis, unspecified site; F41.9 Anxiety disorder, unspecified; F32.9 Major depressive disorder, single episode, unspecified; Z79.899 Other long term (current) drug therapy; Z88.0 Allergy status to penicillin; Z88.1 Allergy status to other antibiotic agents; Z88.8 Allergy status to other drugs, medicaments and biological substances; Z82.49 Family history of ischemic heart disease and other diseases of the circulatory system; Z98.890 Other specified postprocedural states
CPT/HCPCS: 62323; J1030; J1040; Q9965

== ENCOUNTER → 2021-07-15 | Outpatient (CLI) | payer OTHER ==
[2019-01-05 08:06] VITALS: BP 142/74
[~2021-07-15] MED LIST changes: -IOHEXOL 180 MG/ML 10 ML VIAL. ONE; +SODI650T PO; -methylPREDNISolone ACETATE 40 MG/ML VIAL. ONE; -methylPREDNISolone ACETATE 80 MG/ML VIAL. ONE
--- NOTE | 2021-07-15 11:14 | PDOC ---
Progress Note - Pain Clinic Date of Service: DOS: DATE: 07/15/21 TIME: 11:10 Diagnosis: Dx: Lumbar radiculopathy with lumbar degenerative disease and lumbar spinal stenosis Stage III kidney disease History or Present Illness: HPI: 66-year-old female returns for follow-up status post lumbar epidural steroid injection last seen May 12, 2021 patient did very well about 90% improvement initially now about 50% improvement after the last injection pain returning in the low back and bilateral lower extremities patient reports prior to that doing much better with walking standing doing work activities household activities travel with greater ease comfort and sleeping better at night patient reports still better with sitting or laying down and does not generally awaken her from sleep most nights. Patient reports she "cannot get comfortable" and the pain is beginning to get back to baseline. Patient reports also she has been started, by her primary care physician, on sodium bicarb as her sodium levels have been low and her stage III kidney disease has been of more concern secondary to electrolyte imbalances here recently. We discussed the importance of her following up with her public health registrar regarding this and patient has plans to do that very soon. Patient reports no bowel or bladder incontinence. Reports her pain is a 9 on scale 10 at all times average worst and least is a 9 today. Describes pain as aching and shooting in the low back radiating constant posterior gluteus posterior lateral thigh lateral anterior thigh anterior medial thighs right and left essentially equal. Physical Exam: VS: Blood pressure is 124/78 pulse 80 respirations are 18 temperature is 98.3 F weight is 153 pounds PE: PHYSICAL EXAMINATION: GENERAL: The patient is awake, alert, oriented, appropriate, very pleasant in demeanor HEENT: Shows normocephalic, atraumatic. Extraocular movements are intact and symmetrical. Oral cavity: Mucous membranes moist and pink. Dentition is intact. NECK: Shows anterior throat supple without palpable lymphadenopathy noted. Swallow reflex symmetrical. CHEST: Shows normal on inspection. Breath sounds are clear bilaterally, distant no rales or rhonchi. HEART: Shows S1, S2 clear. No murmurs auscultated. ABDOMEN: Soft, nontender, nondistended. No palpable organomegaly is noted. BACK: Shows spine grossly in the midline. Normal-appearing cervical lordotic curvature. There is mildly increased thoracic kyphosis, some flattening of the lumbar lordotic curvature. Lumbar paraspinous muscles show symmetrical on inspection, on palpation shows some moderate tenderness diffusely throughout the upper, middle and lower distribution of the paraspinous muscles, but without specific trigger points, without radiation of pain. The patient has good rotational motion of the lumbar spine, both laterally as well as extension and flexion without significant difficulty. No tenderness over the spinous processes, sacrum or sacroiliac regions. EXTREMITIES: Lower extremities show deep tendon reflexes 2+ in the patellar and tendo calcaneus tendons. Motor exam is 5 on a scale of 5 with right dorsiflexion, extension, quadriceps and hamstring flexion and 5/5 on the left. Peripheral pulses are 1+ posterior tibial. No peripheral edema is noted b ilaterally. Lower extremities are warm and dry to touch, equal in color and appearance. SKIN: Shows warm and dry, good turgor. No edema. No sores, rashes or bruising throughout. Procedure: Procedure: Options discussed with patient. Patient's chart was reviewed as her current medication regimen updated current review of systems updated today as well. We will proceed with a lumbar epidural steroid injection today with fluoroscopic guidance. Risks were discussed including but not limited to: Bleeding, infection, possibility of epidural hematoma and subsequent neurological compromise, dural puncture, headaches, spinal cord and/or nerve damage, side effects of steroid medication, and poor results regarding pain control. Patient understands and wished to proceed. Patient will return to the clinic in approximate 2 weeks for follow-up, was counseled as return appointment, activity level, and side effect to be aware of. Patient will follow-up with her public health registrar regarding her stage III kidney disease and recent addition of sodium bicarbonate for low sodium by her primary physician. Medication Injected: Med Injected: Procedure is lumbar epidural steroid injection under local anesthetic using st erile prep and drape at the L4-5 level using C-arm fluoroscopic guidance in both AP and lateral views medications injected is 120 mg Depo-Medrol +10mL preservative-free normal saline and 2 mL contrast- condition at discharge is stable patient tolerated procedure well had no complications. Condition at Discharge: Condition at Discharge: Condition at discharge is stable, paced tolerated the procedure well and had no complications. ESTRELLA CLIFFORD MD Jul 15, 2021 11:14
--- NOTE | 2021-07-15 11:15 | PDOC4 ---
Procedure Note: ICD 10 Code: ICD 10 Code: M54.16 M51.36 M48.06 Procedure Note: Patient was consented for lumbar epidural steroid injection with fluoroscopic guidance. Risks were discussed including but not limited to: Bleeding, infection, possibility of epidural hematoma and subsequent neurological compromise, dural puncture, headaches, spinal cord and/or nerve damage, side effects of steroid medication, and poor results regarding pain control. Patient understands and wished to proceed. Procedure is lumbar epidural steroid injection under local anesthetic using ster ile prep and drape at the L4-5 level using C-arm fluoroscopic guidance in both AP and lateral views medications injected is 120 mg Depo-Medrol +10mL preservative-free normal saline and 2 mL contrast- condition at discharge is stable patient tolerated procedure well had no complications. ESTRELLA CLIFFORD MD Jul 15, 2021 11:15
== END | disposition home or self-care (01) ==
LOC: PNCL 10:15
PROVIDERS: ATTEND Anesthesiology
DX: M51.16 Intervertebral disc disorders with radiculopathy, lumbar region (principal); M48.061 Spinal stenosis, lumbar region without neurogenic claudication; I12.9 Hypertensive chronic kidney disease with stage 1 through stage 4 chronic kidney disease, or unspecified chronic kidney disease; N18.30 Chronic kidney disease, stage 3 unspecified; J45.909 Unspecified asthma, uncomplicated; K21.9 Gastro-esophageal reflux disease without esophagitis; M19.90 Unspecified osteoarthritis, unspecified site; F41.9 Anxiety disorder, unspecified; F32.9 Major depressive disorder, single episode, unspecified; Z79.899 Other long term (current) drug therapy; Z98.890 Other specified postprocedural states; Z88.0 Allergy status to penicillin; Z88.1 Allergy status to other antibiotic agents; Z88.8 Allergy status to other drugs, medicaments and biological substances
CPT/HCPCS: 62323

== ENCOUNTER → 2021-10-07 | Outpatient (CLI) | payer OTHER ==
[2019-01-05 08:06] VITALS: BP 142/74
[~2021-10-07] MED LIST changes: +IOHEXOL 180 MG/ML 10 ML VIAL. ONE; -OMEP20TA8 PO; +OMEP20TA91 PO; +methylPREDNISolone ACETATE 40 MG/ML VIAL. ONE; +methylPREDNISolone ACETATE 80 MG/ML VIAL. ONE
--- NOTE | 2021-10-07 12:37 | PDOC ---
Progress Note - Pain Clinic Date of Service: DOS: DATE: 10/07/21 TIME: 12:34 Diagnosis: Dx: Lumbar radiculopathy with lumbar degenerative disease and lumbar spinal stenosis History or Present Illness: HPI: 66-year-old female returns last seen June 2021 patient did very well after epidural steroid injection report about 80% improvement of the pain now increasing in the left lower extremity previously was just in the low back and the bilateral hips patient reports now her left leg is significantly more noticeably painful patient reports aching and sharp radiating down the leg in the posterior gluteus posterior lateral thigh lateral anterior thigh and into the calf most medially and posteriorly patient reports is becoming more constant radiating worse with walking standing changing positions no motor loss but significant fatigability with left lower extremity with ambulation and standing. Patient reports its been that way for about a month rated as a 9 on scale 10 at its worst over the past week 7 on average 6 its least is a 7 today patient reports no bowel or bladder incontinence but significant fatigability with the left leg, patient reports that wakes her from sleep occasionally but not most nights much better with sitting or laying down. Physical Exam: VS: Blood pressure is 144/91 pulse 72 respirations 16 temperature 97.7 F weight is 158 pounds. PE: PHYSICAL EXAMINATION: GENERAL: The patient is awake, alert, oriented, appropriate, very pleasant in demeanor HEENT: Shows normocephalic, atraumatic. Extraocular movements are intact and symmetrical. Oral cavity: Mucous membranes moist and pink. Dentition is intact. NECK: Shows anterior throat supple without palpable lymphadenopathy noted. Swallow reflex symmetrical. CHEST: Shows normal on inspection. Breath sounds are clear bilaterally, no rales or rhonchi auscultated. HEART: Shows S1, S2 clear. No murmurs auscultated. ABDOMEN: Soft, nontender, nondistended. No palpable organomegaly is noted. BACK: Shows spine grossly in the midline. Normal-appearing cervical lordotic curvature. There is slightly increased thoracic kyphosis, some mild flattening of the lumbar lordotic curvature. Lumbar paraspinous muscles show symmetrical on inspection, on palpation shows some moderate tenderness diffusely throughout the upper, middle and lower distribution of the paraspinous muscles, but without specific trigger points, without radiation of pain. The patient has good rotational motion of the lumbar spine, both laterally as well as extension and flexion without significant difficulty. EXTREMITIES: Lower extremities show deep tendon reflexes 2+ in the patellar and tendo calcaneus tendons. Motor exam is 5 on a scale of 5 with right dorsiflexion, extension, quadriceps and hamstring flexion and 4/5 on the left. Peripheral pulses are 1+ posterior tibial. No peripheral edema is noted bilaterally. Lower extremities are warm and dry. SKIN: Shows warm and dry, good turgor. No edema. No sores, rashes or bruising throughout. Procedure: Procedure: Options discussed with patient. Patient's chart was viewed as her current medication regimen updated current review of systems updated today as well. We will proceed with a lumbar epidural steroid injection today with fluoroscopic guidance. Risks were discussed including but not limited to: Bleeding, infection, possibility of epidural hematoma and subsequent neurological compromise, dural puncture, headaches, spinal cord and/or nerve damage, side effects of steroid medication, and poor results regarding pain control. Patient understands and wished to proceed. Patient will return to the clinic in approximately 2 weeks for follow-up, was counseled as to return appointment, active level, and side effect to be aware of. Medication Injected: Med Injected: Procedure is lumbar epidural steroid injection under local anesthetic using sterile prep and drape at the L4-5 level using C-arm fluoroscopic guidance in both AP and lateral views medications injected is 120 mg methylprednisolone +10mL preservative-free normal saline and 2 mL contrast- condition at discharge is stable patient tolerated procedure well had no complications. Condition at Discharge: Condition at Discharge: Condition at discharge stable, patient tolerated the procedure well and had no complications. ESTRELLA CLIFFORD MD Oct 07, 2021 12:37
--- NOTE | 2021-10-07 12:38 | PDOC4 ---
Procedure Note: ICD 10 Code: ICD 10 Code: M54.16 M51.36 M4 8.06 Procedure Note: Patient was consented for lumbar epidural steroid injection with fluoroscopic guidance. Risks were discussed including but not limited to: Bleeding, infection, possibility of epidural hematoma and subsequent neurological compromise, dural puncture, headaches, spinal cord and/or nerve damage, side effects of steroid medication, and poor results regarding pain control. Patient understands and wished to proceed. Procedure is lumbar epidural steroid injection under local anesthetic using carl rile prep and drape at the L4-5 level using C-arm fluoroscopic guidance in both AP and lateral views medications injected is 120 mg methylprednisolone +10mL preservative-free normal saline and 2 mL contrast- condition at discharge is stable patient tolerated procedure well had no complications. ESTRELLA CLIFFORD MD Oct 07, 2021 12:38
== END | disposition home or self-care (01) ==
LOC: PNCL 11:14
PROVIDERS: ATTEND Anesthesiology
DX: M51.16 Intervertebral disc disorders with radiculopathy, lumbar region (principal); M48.061 Spinal stenosis, lumbar region without neurogenic claudication; I12.9 Hypertensive chronic kidney disease with stage 1 through stage 4 chronic kidney disease, or unspecified chronic kidney disease; N18.2 Chronic kidney disease, stage 2 (mild); J45.909 Unspecified asthma, uncomplicated; K21.9 Gastro-esophageal reflux disease without esophagitis; F41.9 Anxiety disorder, unspecified; F32.9 Major depressive disorder, single episode, unspecified; M19.90 Unspecified osteoarthritis, unspecified site; Z79.899 Other long term (current) drug therapy; Z98.890 Other specified postprocedural states; Z88.0 Allergy status to penicillin; Z88.1 Allergy status to other antibiotic agents; Z88.8 Allergy status to other drugs, medicaments and biological substances
CPT/HCPCS: 62323; J1030; J1040; Q9965